=== PATIENT | female | born 1975 | race African-American/Black ===

== ENCOUNTER 2017-04-08 11:41 | Emergency (ER) | payer SELFPAY | END 2017-04-08 12:06 | disposition home or self-care (01) | LOC: NAV ERS 11:41 | DX: K52.9 Noninfective gastroenteritis and colitis, unspecified (principal); E11.9 Type 2 diabetes mellitus without complications; I10 Essential (primary) hypertension; Z79.84 Long term (current) use of oral hypoglycemic drugs; Z79.899 Other long term (current) drug therapy | CPT/HCPCS: 99284 ==

== ENCOUNTER 2017-11-28 12:10 | Emergency (ER) | payer SELFPAY ==
[2017-11-28] MEDS ORDERED: Penicillin V Potassium 250 MG TAB ONE (12:37)
[2017-11-28] MEDS ORDERED: diphenhydrAMINE 25 MG CAP ONE (12:43)
[2017-11-28] MEDS ORDERED: predniSONE 20 MG TAB ONE (12:43)
[2017-11-28] MEDS ORDERED: predniSONE 10 MG TAB ONE (12:43)
[2017-11-28] MEDS ORDERED: Famotidine 20 MG TAB ONE (12:43)
== END 2017-11-28 13:15 | disposition home or self-care (01) ==
LOC: NAV ERS 12:10
DX: R22.0 Localized swelling, mass and lump, head (principal); K02.9 Dental caries, unspecified; E11.9 Type 2 diabetes mellitus without complications; I10 Essential (primary) hypertension; Z79.82 Long term (current) use of aspirin; Z79.899 Other long term (current) drug therapy
CPT/HCPCS: 99283; J7506; J7512

== ENCOUNTER 2017-12-17 01:25 | Emergency (ER) | payer SELFPAY ==
[2017-12-17] MEDS ORDERED: Ibuprofen 200 MG TAB ONE (01:50)
== END 2017-12-17 02:12 | disposition home or self-care (01) ==
LOC: NAV ERS 01:25
DX: J04.0 Acute laryngitis (principal); E11.9 Type 2 diabetes mellitus without complications; I10 Essential (primary) hypertension; Z79.84 Long term (current) use of oral hypoglycemic drugs
CPT/HCPCS: 87081; 87430; 99283

== ENCOUNTER 2018-05-13 12:46 | Emergency (ER) | payer MEDICAID, SELFPAY | END 2018-05-13 13:19 | disposition home or self-care (01) | LOC: NAV ERS 12:46 | DX: S46.812A Strain of other muscles, fascia and tendons at shoulder and upper arm level, left arm, initial encounter (principal); S29.012A Strain of muscle and tendon of back wall of thorax, initial encounter; E11.9 Type 2 diabetes mellitus without complications; I10 Essential (primary) hypertension; Z79.84 Long term (current) use of oral hypoglycemic drugs; Z79.899 Other long term (current) drug therapy; X58.XXXA Exposure to other specified factors, initial encounter | CPT/HCPCS: 99283 ==

== ENCOUNTER 2018-05-15 23:06 | Emergency (ER) | payer MEDICAID ==
[2018-05-15] MEDS ORDERED: cloNIDine 0.1 MG TAB ONE (23:35)
[2018-05-15 23:50] LABS: Bilirubin Negative (Negative); Blood, Urine Trace (Negative); Clarity Clear (Clear); Glucose, Urine (Dipstick) Negative (Negative); Leukocyte Trace (Negative); Nitrite Negative (Negative); Protein, Urine (Dipstick) 30 mg/dL (Neg-Trace); pH, Urine 5.5 (5.0-9.0)
[2018-05-15 23:52] LABS: Specific Gravity, Urine 1.032 (1.002-1.036)
[2018-05-15 23:54] LABS: RBC/HPF 0-3 HPF (0-3); WBC/HPF 0-3 HPF (0-3)
[2018-05-15 23:55] LABS: Bacteria/HPF Rare-Few HPF (None Seen); Yeast-All Forms 1+ HPF (None Seen)
[2018-05-15 23:58] LABS: ALT (SGPT) 14 U/L (8-55); AST (SGOT) 15 U/L (5-34); Albumin 4.1 g/dL (3.5-5.0); Alkaline Phosphatase 91 U/L (40-150); Anion Gap 12 mmol/L (10-20); BUN (Urea Nitrogen) 15 mg/dL (7.0-18.7); Bilirubin, Total 0.3 mg/dL (0.2-1.2); CK (CPK) 231 U/L (29-168); CKMB 1.3 ng/mL (0-6.6); Calc. Creatinine Clearance 0 mL/min (70-130); Calcium 9.2 mg/dL (7.8-10.44); Carbon Dioxide 22 mmol/L (22-29); Chloride 109 mmol/L (98-107); Estimated GFR-MDRD 67; Globulin 3.7 g/dL (2.4-3.5); Glucose 140 mg/dL (70-105); Lipase 51 U/L (8-78); Potassium 3.2 mmol/L (3.5-5.1); Protein, Total 7.8 g/dL (6.0-8.3); Sodium 140 mmol/L (136-145); Troponin I Less than 0.010 ng/mL (< 0.028)
[2018-05-15 23:59] LABS: Band 5 % (5-11); Eosinophils 3 % (0-10); Hemoglobin 11.7 g/dL (12.0-16.0); Hypochromia SLIGHT = 6-15 cells (100X) (0-5/hpf); Lymphocytes 53 % (21-51); MDiff Complete? YES; Mean Corpuscular HGB CONC 30.9 g/dL (32.0-36.0); Mean Corpuscular Hemoglobin 23.8 pg (27.0-31.0); Mean Corpuscular Volume 76.8 fL (78.0-98.0); Microcytosis SLIGHT = 6-15 cells (100X) (0-5/hpf); Monocytes 2 % (0-10); Neutrophil 37 % (42-75); PLT Morphology Comment Appears Adequate; Platelet Count 379 thou/uL (130-400); RBC Distribution Width 15.1 % (11.5-14.5); Red Blood Cell (RBC) Count 4.95 mill/uL (4.20-5.40); White Blood Cell (WBC) Count 9.4 thou/uL (4.8-10.8)
[2018-05-16] LABS: Amphetamine Not Detected (NotDetected); Barbiturates Screen Not Detected (NotDetected); Benzodiazepine Screen Not Detected (NotDetected); Cocaine Metabolite Screen Not Detected (NotDetected); Medtox Control Line Valid? VALID (VALID); Methadone Not Detected (NotDetected); Methamphetamine Not Detected (NotDetected); Opiate Screen Not Detected (NotDetected); Oxycodone Screen Not Detected (NotDetected); Phencyclidine (PCP) Not Detected (NotDetected); THC/Cannabinoid Screen Not Detected (NotDetected); Tricyclic Screen Not Detected (NotDetected)
== END 2018-05-16 00:20 | disposition home or self-care (01) ==
LOC: NAV ERS 23:06
DX: I10 Essential (primary) hypertension (principal); E87.6 Hypokalemia; E11.9 Type 2 diabetes mellitus without complications; Z79.899 Other long term (current) drug therapy; Z79.84 Long term (current) use of oral hypoglycemic drugs
CPT/HCPCS: 36416; 80053; 80306; 81003; 81015; 82553; 83690; 83880; 84484; 85025; 93005

== ENCOUNTER 2021-03-13 20:43 | Emergency (ER) | payer MEDICAID, SELFPAY ==
[2021-03-13] MEDS ORDERED: Ibuprofen 800 MG TAB ONE (21:24)
== END 2021-03-13 21:30 | disposition home or self-care (01) ==
LOC: NAV ERS 20:43
DX: M72.2 Plantar fascial fibromatosis (principal); E11.9 Type 2 diabetes mellitus without complications; I10 Essential (primary) hypertension; Z79.84 Long term (current) use of oral hypoglycemic drugs; Z79.899 Other long term (current) drug therapy
CPT/HCPCS: 99282

== ENCOUNTER 2021-08-09 13:18 | Emergency (ER) | payer MEDICAID, SELFPAY ==
[2021-08-10 15:16] LABS: SARS-CoV-2 PCR by NAA Not Detected (NotDetected)
== END 2021-08-09 14:10 | disposition home or self-care (01) ==
LOC: NAV ERS 13:18
DX: M54.50 Low back pain, unspecified (principal); R51.9 Headache, unspecified; R10.9 Unspecified abdominal pain; Z20.822 Contact with and (suspected) exposure to COVID-19; E11.9 Type 2 diabetes mellitus without complications; I10 Essential (primary) hypertension; Z79.84 Long term (current) use of oral hypoglycemic drugs
CPT/HCPCS: 87804; 99284; U0003; U0005

== ENCOUNTER 2021-10-23 10:27 | Emergency (ER) | payer MEDICAID, SELFPAY | END 2021-10-23 11:30 | disposition left against medical advice (07) | LOC: NAV ERS 10:27 | DX: Z53.21 Procedure and treatment not carried out due to patient leaving prior to being seen by health care provider (principal) ==

== ENCOUNTER 2021-11-15 10:30 | Outpatient (CLI) | payer MEDICAID | END 2021-11-15 10:31 | disposition home or self-care (01) | LOC: NAV RAD 10:30 | PROVIDERS: ATTEND Nurse Practitioner Family | DX: R10.9 Unspecified abdominal pain (principal) | CPT/HCPCS: 74018 ==

== ENCOUNTER 2022-05-02 13:37 | Emergency (ER) | payer MEDICAID | END 2022-05-02 13:55 | disposition left against medical advice (07) | LOC: NAV ERS 13:37 | DX: Z53.21 Procedure and treatment not carried out due to patient leaving prior to being seen by health care provider (principal) ==

== ENCOUNTER 2024-05-05 08:08 | Emergency (ER) | payer BC, SELFPAY | END 2024-05-05 09:02 | disposition home or self-care (01) | LOC: NAV ERS 08:08 | DX: S16.1XXA Strain of muscle, fascia and tendon at neck level, initial encounter (principal); S29.011A Strain of muscle and tendon of front wall of thorax, initial encounter; S46.911A Strain of unspecified muscle, fascia and tendon at shoulder and upper arm level, right arm, initial encounter; V43.93XA Unspecified car occupant injured in collision with pick-up truck in traffic accident, initial encounter | CPT/HCPCS: 99283 ==

== ENCOUNTER 2025-03-16 10:57 | Emergency (ER) | payer BC | END 2025-03-16 12:04 | disposition home or self-care (01) | LOC: NAV ERS 10:57 | DX: B34.9 Viral infection, unspecified (principal); J02.9 Acute pharyngitis, unspecified; M54.9 Dorsalgia, unspecified; R19.7 Diarrhea, unspecified; I10 Essential (primary) hypertension; E11.9 Type 2 diabetes mellitus without complications; Z79.84 Long term (current) use of oral hypoglycemic drugs; Z79.899 Other long term (current) drug therapy | CPT/HCPCS: 87426; 99284 ==